=== PATIENT | male | born 1980 | race Caucasian/White ===

== ENCOUNTER 2018-06-17 18:38 | Emergency (ER) | payer BC ==
[2018-06-17 18:58] VITALS: BP 155/96
--- NOTE | 2018-06-17 20:54 | EDM.PDOC ---
ED HPI GENERAL MEDICAL PROBLEM - General Chief Complaint: Lower Extremity Injury/Pain Stated Complaint: LEFT FOOT INJURY Time Seen by Provider: 06/17/18 19:17 Source of Information: Reports: Patient History Limitations: Reports: No Limitations - History of Present Illness INITIAL COMMENTS - FREE TEXT/NARRATIVE: 37-year-old male presents for evaluation and treatment of an injury to the left foot. Patient reports he was playing basketball at noon. States he was running he rolled his left foot. He reports hearing a popping sound. He has been experiencing pain to the left lateral foot, swelling and bruising throughout the day. He states that he has been walking on this but this is quite uncomfortable. No previous trauma to the left foot or ankle. No numbness or tingling to the foot or ankle. Left Feet Pain Score (Numeric/FACES): 6 - Related Data Allergies Allergy/AdvReac Type Severity Reaction Status Date / Time No Known Allergies Allergy Verified 06/17/18 18:58 Home Meds: Home Meds . [No Known Home Meds] 06/17/18 [History] Past Medical History - Past Health History Medical/Surgical History: Denies Medical/Surgical History Musculoskeletal History: Reports: Back Pain, Chronic Social & Family History - Tobacco Use Smoking Status *Q: Never Smoker - Caffeine Use Caffeine Use: Reports: Coffee - Recreational Drug Use Recreational Drug Use: No - Living Situation & Occupation Living situation: Reports: Occupation: Employed Review of Systems - Review of Systems Review Of Systems: See Below Musculoskeletal: Reports: Foot Pain (left lateral foot), Joint Swelling (left lateral foot) Skin: Reports: Bruising (left lateral foot). Denies: Erythema, Wound Neurological: Reports: Difficulty Walking. Denies: Numbness, Tingling ED EXAM, GENERAL - Physical Exam Exam: See Below Exam Limited By: No Limitations General Appearance: Alert, WD/WN, No Apparent Distress Respiratory/Chest: No Respiratory Distress Cardiovascular: Normal Peripheral Pulses, Regular Rate, Rhythm Peripheral Pulses: 3+: Posterior Tibial (L), Posterior Tibial (R), Dorsalis Pedis (L), Dorsalis Pedis (R) Extremities: Normal Inspection (no obvious deformity), Normal Range of Motion ( able to wiggle toes, dorsiflex, plantarflex), Other (tenderness to the proximal 5th metatarsal, swelling and mild bruising appreciated to this area) Neurological: Alert, Oriented, Normal Cognition Psychiatric: Normal Affect, Normal Mood Course - Vital Signs Last Recorded V/S: Last Vital Signs Temp 97.2 F 06/17/18 18:55 Pulse 97 06/17/18 18:55 Resp 16 06/17/18 18:55 BP 155/96 H 06/17/18 18:55 Pulse Ox 95 06/17/18 18:55 - Orders/Labs/Meds Orders: Active Orders 24 hr Category Date Time Status Foot Comp Min 3V Lt [CR] Stat Exams 06/17/18 19:26 Taken - Radiology Interpretation Free Text/Narrative:: fracture of the proximal 5th metatarsal appreciated. Formal radiology read pending. - Re-Assessments/Exams Free Text/Narrative Re-Assessment/Exam: 06/17/18 20:50 Reviewed the xray results with the patient. Offered crutches and a splint versus a walking boot. Due to concerns over the weather and his ability to navigate safely with crutches the patient opted for a walking boot. I'll have him follow-up with orthopedics. Patient feels pain can be controlled with tylenol and motrin. Declines anything stronger for pain. Discharge instructions as documented. Departure - Departure Time of Disposition: 20:54 Disposition: Home, Self-Care 01 Condition: Fair Clinical Impression: Fracture of 5th metatarsal - Discharge Information *PRESCRIPTION DRUG MONITORING PROGRAM REVIEWED*: No *COPY OF PRESCRIPTION DRUG MONITORING REPORT IN PATIENT YULISA: No Instructions: Metatarsal Fracture Referrals: PCP,None [Primary Care Provider] - Phan Cortes MD [Physician] - Forms: ED Department Discharge Additional Instructions: Ice and elevate the foot as much as you are able to. Follow-up with Dr. Lerner within 2 weeks. Call [phone] to schedule with him. Please let them know you have a fracture of left, proximal fifth metatarsal. Tylenol and Motrin as needed for pain relief. Wear the walking boot at all times. may remove for showering Please return to the ER if your symptoms change or worsen. - My Orders Last 24 Hours: My Active Orders 06/17/18 19:26 Foot Comp Min 3V Lt [CR] Stat - Assessment/Plan Last 24 Hours: My Active Orders 06/17/18 19:26 Foot Comp Min 3V Lt [CR] Stat
--- NOTE | 2018-06-18 06:17 | CR ---
Left foot: Four views of the left foot were obtained. Comparison: No prior foot exam. Slightly displaced fracture is identified within the base of the fifth metatarsal. Soft tissue swelling is noted. No additional fracture or other bony abnormality is seen. Impression: 1. Fifth metatarsal fracture as noted above. 2. Soft tissue swelling. Diagnostic code #3
== END 2018-06-17 21:00 | disposition home or self-care (01) ==
LOC: JD.ED 18:38
DX: S92.352A Displaced fracture of fifth metatarsal bone, left foot, initial encounter for closed fracture (principal); Y93.67 Activity, basketball; X50.1XXA Overexertion from prolonged static or awkward postures, initial encounter
CPT/HCPCS: 73630-26-LT; 73630-LT; 99283